=== PATIENT | female | born 1980 | race American Indian/Alaskan Native ===

== ENCOUNTER 2021-06-29 12:27 | Emergency (ER) | payer MEDICAID ==
[2021-06-29 12:43] VITALS: BP 128/58
--- NOTE | 2021-07-01 17:48 | Electrocardiograph Report ---
[facility] Test Date: 2021-06-29 Test Time: 12:46:00 Pat Name: GARY ELENA Department: Room: Gender: F [employer] Professor: [place] : 1980 Requested By: YOKO CASTRO Order Number: [id number] Reading MD: Klever George Measurements Intervals [place] Rate: 57 P: 67 [place]: 149 QRS: 53 QRSD: 88 T: 54 QT: 458 QTc: 447 Interpretive Statements Sinus bradycardia Low voltage, precordial leads No previous ECG available for comparison Electronically Signed On 07-01-2021 17:48:35 EDT by Klever George
== END 2021-06-29 14:10 | disposition left against medical advice (07) ==
LOC: ED 12:27
DX: R07.9 Chest pain, unspecified (principal); Z53.21 Procedure and treatment not carried out due to patient leaving prior to being seen by health care provider
CPT/HCPCS: 93005